=== PATIENT | female | born 1940 | race Caucasian/White ===

== ENCOUNTER → 2017-11-19 09:55 | Outpatient (CLI) | payer MEDICARE, OTHER ==
[2014-06-20 16:59] VITALS: BMI 22.9
[~2017-11-19 09:55] MED LIST: ESTRACE 0.5 MG0.5 MG PO; HYDROCHLOROTH12.5 M1 PO; MOBIC7.5 MG PO; PRAVACHOL20 MG PO; TOPROL XL25 MG PO; ULTRAM50 MG PO; XANAX0.25 MG PO; ZYRTEC10 MG PO
== END | disposition home or self-care (01) ==
LOC: D.CT 09:55
DX: M54.5 Low back pain (principal)

== ENCOUNTER 2020-02-21 11:53 | Observation (INO) | payer MEDICARE, OTHER ==
[~2020-02-21] VITALS: Ht 167.6 cm; Wt 82.3 kg
[2020-02-21] MEDS ORDERED: BETAPACE 80 MG80 MG PO (12:32)
[2020-02-21] MEDS ORDERED: ASPIRIN81 MG PO (12:33)
[2020-02-21] MEDS ORDERED: LEVOXYL25 MCG PO (12:35)
[2020-02-21] MEDS ORDERED: BACTRIM DS TAB1 EAC1 PO (12:36)
[2020-02-21 12:46] VITALS: BMI 29.2
[2020-02-21 13:00] VITALS: BP 136/76
--- NOTE | 2020-02-21 13:45 | NUR ---
IV STARTED TO RIGHT AC WITH 22 GAUGE CATH X 1 STICK AND FLUSHED WITH NS. EKG COMPLETED. WILL CONT. PLAN OF CARE.
[2020-02-21 13:55] LABS: BASOPHILS 0.6 % (0-2); EOSINOPHILS 3.4 % (0-7); HEMATOCRIT 44.4 % (36.0-48.0); HEMOGLOBIN 14.4 g/dL (12-16); IMMATURE GRANULOCYTES 0.4 % (0-5); LYMPHOCYTES 14.2 % (15-50); MCH 29.9 pg (26.0-34.0); MCHC 32.4 g/dL (31.0-37.0); MCV 92.3 fL (80.0-100.0); MEAN PLATELET VOLUME 10.4 fL (7.4-10.4); MONOCYTES 7.4 % (2-11); PLATELET COUNT 266 10x3/uL (130-400); RBC 4.81 10x6/uL (4.00-5.40); RDW 12.9 % (11.5-14.5); WBC 12.2 10x3/uL (4.8-10.8)
[2020-02-21 14:04] LABS: APTT 24.1 SECONDS (22.8-39.4); INR 0.97 (0.85-1.17); PROTIME 12.8 SECONDS (11.6-15.0)
[2020-02-21 14:22] LABS: ALBUMIN 3.9 g/dL (3.4-5.0); ALKALINE PHOSPHATASE 87 U/L (30-120); ALT (SGPT) 18 U/L (10-68); BILIRUBIN - TOTAL 0.44 mg/dL (0.2-1.3); CALC OSMOLALITY 278 mosm/kg (275-300); CALCIUM 9.1 mg/dL (8.5-10.1); CARBON DIOXIDE 28.5 mmol/L (21.0-32.0); CHLORIDE - SERUM 102 mmol/L (98-107); CKMB 1.5 U/L (0.0-3.6); CREATINE KINASE 103 UL (21-215); CREATININE - SERUM 1.2 mg/dL (0.6-1.3); GLUCOSE 108 mg/dL (74-106); POTASSIUM - SERUM 4.3 mmol/L (3.5-5.1); SODIUM 138 mmol/L (136-145); UREA NITROGEN 19 mg/dL (7-18); eGFR NON AFRICAN AMERICAN 46 mL/min (90-120)
[2020-02-21 14:23] LABS: TROPONIN-I < 0.017 ng/mL (0.000-0.060)
[2020-02-21 16:05] VITALS: Ht 167.6 cm; Wt 82.3 kg
--- NOTE | 2020-02-21 19:27 | NUR ---
RECEIVED BEDSIDE REPORT. PATIENT IS ALERT AND ORIENTED, RESTING COMFORTABLY IN BED. RESPIRATIONS ARE EVEN AND UNLABORED. NO S/S OF DISTRESS. NO C/O PAIN. CALL LIGHT WITHIN REACH. NEEDS MET.
[2020-02-21 20:00] VITALS: BP 134/64
[2020-02-22 01:55] VITALS: BP 128/63
[2020-02-22 05:58] VITALS: BP 119/64
[2020-02-22 07:28] LABS: BASOPHILS 0.6 % (0-2); HEMATOCRIT 38.6 % (36.0-48.0); HEMOGLOBIN 12.7 g/dL (12-16); IMMATURE GRANULOCYTES 0.3 % (0-5); LYMPHOCYTES 23.8 % (15-50); MCHC 32.9 g/dL (31.0-37.0); MCV 91.3 fL (80.0-100.0); MEAN PLATELET VOLUME 9.9 fL (7.4-10.4); MONOCYTES 9.4 % (2-11); NEUTROPHILS 61.9 % (40-80); PLATELET COUNT 258 10x3/uL (130-400); RBC 4.23 10x6/uL (4.00-5.40); RDW 12.9 % (11.5-14.5); WBC 9.3 10x3/uL (4.8-10.8)
[2020-02-22 07:30] LABS: ALBUMIN 3.3 g/dL (3.4-5.0); ANION GAP 7.8 mmol/L (8-16); BILIRUBIN - TOTAL 0.46 mg/dL (0.2-1.3); CARBON DIOXIDE 31.9 mmol/L (21.0-32.0); CREATININE - SERUM 1.2 mg/dL (0.6-1.3); MAGNESIUM - SERUM 2.1 mg/dL (1.8-2.4); PHOSPHOROUS 3.5 mg/dL (2.5-4.9); POTASSIUM - SERUM 3.7 mmol/L (3.5-5.1); PROTEIN - SERUM 6.5 g/dL (6.4-8.2); THYROID STIMULATING HORMONE 1.95 uIU/mL (0.36-3.74)
[2020-02-22 07:57] VITALS: BP 123/60
[2020-02-22 11:19] VITALS: BP 122/63
--- NOTE | 2020-02-22 11:31 | NUR ---
URINE SPECIMEN COLLECTED AND TAKEN TO LAB. WILL MONITOR.
[2020-02-22 13:13] LABS: BILIRUBIN NEGATIVE (NEGATIVE); KETONE NEGATIVE (NEGATIVE); NITRITE NEGATIVE (NEGATIVE); UROBILINOGEN NORMAL mg/dL (< 2); WHITE CELLS - URINE RARE HPF (0-4)
[2020-02-22 13:14] LABS: BACTERIA FEW /HPF (NONE SEEN); EPITHELIAL CELLS 0-5 /hpf (0-5)
[2020-02-22 14:43] VITALS: BP 129/61
[2020-02-22] MEDS ORDERED: ELIQUIS5 MG PO (16:49)
[2020-02-22] MEDS ORDERED: BETAPACE 120 M120 MG PO (16:50)
--- NOTE | 2020-02-22 18:15 | NUR ---
IV AND TELEMETRY DCD. DC PLANS GIVEN. UNDERSTANDING VOICED. ESCORTED TO CAR BY W/C.
== END 2020-02-22 18:16 | disposition home or self-care (01) ==
LOC: D.M2 11:53 → OBSVTIME 11:54 → D.M2 02-22 18:16
PROVIDERS: Family Medicine; ADMIT Family Medicine; ATTEND Family Medicine
DX: I48.0 Paroxysmal atrial fibrillation (principal); E78.5 Hyperlipidemia, unspecified; I10 Essential (primary) hypertension; E03.9 Hypothyroidism, unspecified; Z95.0 Presence of cardiac pacemaker; M54.9 Dorsalgia, unspecified; G89.29 Other chronic pain; G47.00 Insomnia, unspecified; M19.90 Unspecified osteoarthritis, unspecified site